=== PATIENT | female | born 1965 | race Asian ===

== ENCOUNTER 2017-07-21 10:34 | Day surgery (SDC) | payer OTHER ==
[2017-07-21] MEDS ORDERED: MIDAZOLAM 1 MG/ML 2 ML INJ ×2 (12:02→12:03)
[2017-07-21] MEDS ORDERED: FENTAnyl 50 MCG/ML VIAL (12:03)
== END 2017-07-21 18:44 | disposition home or self-care (01) ==
LOC: GIL 10:34
DX: Z12.11 Encounter for screening for malignant neoplasm of colon (principal); K64.8 Other hemorrhoids; I10 Essential (primary) hypertension
CPT/HCPCS: 45378